=== PATIENT | male | born 1965 | race Caucasian/White ===

== ENCOUNTER 2024-11-24 11:16 | Outpatient (CLI) | payer BC, SELFPAY ==
--- NOTE | 2024-11-24 08:45 | DI.RAD_ITS ---
Exam(s) XR KNEE LT 3V AP,LAT,ALYX XR STANDING ALIGNMENT EXAM: XR STANDING ALIGNMENT and XR knee LT 3 V CLINICAL HISTORY: knee pain. TECHNIQUE: 2D digital imaging was performed. Seven images were obtained. COMPARISON: CR ORTHO KNEE LEFT 4+VIEWS from 03/28/2021 CR XR KNEE LT 3V AP,LAT,ALYX from 11/24/2024 FINDINGS: BONES: The hips are well maintained. There are stable postsurgical changes of a right total knee arthroplasty. In the left knee, there is marked narrowing of the medial femoral tibial joint. There osteophytes seen in the medial femoral tibial and patellofemoral joints. There is a small joint effusion. There is an enthesophyte at the superior patella. There is a small subchondral cyst in the medial femoral condyle. The ankles are well maintained.The right lower extremity measures 93 cm. The left lower extremity measures 94 cm. SOFT TISSUE: Vascular calcifications are present. IMPRESSION: Marked osteoarthritis of the left knee. DATA REPOSITORY: RADIATION DOSE DELIVERED:
== END 2024-11-24 11:17 | disposition home or self-care (01) ==
LOC: DIORS 11:16
PROVIDERS: PCP Physician Assistant; Visit Provider Physician Assistant
DX: M25.562 Pain in left knee (principal); M17.12 Unilateral primary osteoarthritis, left knee
CPT/HCPCS: 73562; 77073

== ENCOUNTER 2025-01-05 02:02 | Outpatient (CLI) | payer BC, SELFPAY ==
[2025-01-05 10:10] LABS: HCT 45.2 % (40.0-50.0); HGB 15.8 g/dL (13.5-17.5); MCH 31.3 pg (27.0-33.0); MCHC 35.0 % (32.0-36.0); MCV 90 fL (80-95); MPV 9.1 fL (8.0-11.0); Platelet Count 204 10^3/uL (130-400); RBC 5.05 10^6/uL (4.36-5.78); RDW 12.4 % (11.8-14.1); RDW-SD 40.1 fL; WBC 6.10 10^3/uL (4.4-10.8)
[2025-01-05 10:50] LABS: Anion Gap 8.7 mmol/L (3-11); BUN 14 mg/dL (9-23); CO2 26.3 mmol/L (20.0-31.0); Calcium 9.7 mg/dL (8.3-10.6); Chloride 104 mmol/L (98-107); Glucose 92 mg/dL (74-106); Potassium 4.5 mmol/L (3.5-5.1); Sodium 139 mmol/L (136-145)
== END 2025-01-05 02:03 | disposition home or self-care (01) ==
LOC: LBO 02:02
PROVIDERS: PCP Physician Assistant; Visit Provider Student in an Organized Health Care Education/Training Program
DX: M17.12 Unilateral primary osteoarthritis, left knee (principal); Z01.818 Encounter for other preprocedural examination
CPT/HCPCS: 36415; 80048; 85027

== ENCOUNTER 2025-01-13 06:02 | Day surgery (SDC) | payer BC, SELFPAY ==
[2025-01-13] VITALS (14 sets, daily range): BP systolic 99–129; BP diastolic 67–80; PULSE 62–75; RESP 12–17; TEMP 36.2–36.6; O2SAT 90–98; BMI 32.6
[2025-01-13] MEDS: Celecoxib 200 MG CAP 400 MG PO (06:27)
[2025-01-13] MEDS: Gabapentin 300 MG CAP PO (06:28)
[2025-01-13] MEDS: Acetaminophen 500 MG TAB 1000 MG PO (06:28)
[2025-01-13] MEDS: Lactated Ringers 1,000 ML 80 ML IV (06:45)
--- NOTE | 2025-01-13 06:58 | W.PM.DSUDISC ---
Date of service: 01/13/25 Discharge Plan Disposition Patient Disposition: Home Condition: Good Discharge Details Reason For Visit: Left knee DJD Attending Provider: Theodore Benson Primary Care Provider: Brad Mendez [place] Meds and New Rx's Prescriptions: New acetaminophen 500 mg tablet 1,000 mg PO Q8H PRN Qty: 90 0RF Rx Instructions: Take two tablets up to every 8 hours as needed for pain aspirin 81 mg tablet,delayed release (DR/EC) 81 mg PO BID 30 Days Qty: 60 0RF celecoxib [Celebrex] 200 mg capsule 200 mg PO BID PRNQty: 60 0RF Rx Instructions: Take one tablet twice daily for pain and inflammation docusate sodium [Colace] 100 mg capsule 100 mg PO BID Qty: 28 0RF dexamethasone 4 mg tablet 4 mg PO DAILY Qty: 2 0RF Rx Instructions: Take one tablet once daily for two days gabapentin 300 mg capsule 300 mg PO QHS Qty: 14 0RF Rx Instructions: Take one tablet at bedtime oxycodone 5 mg tablet 5 mg PO Q4H PRNQty: 18 0RF Rx Instructions: Take one tablet up to every 4 hours as needed for severe postoperative pain Continued atorvastatin [Lipitor] 20 mg tablet 20 mg PO DAILY lisinopril 20 mg tablet 20 mg PO DAILY zolpidem 10 mg tablet 10 mg PO QHS PRN colchicine 0.6 mg tablet 0.6 mg PO DAILY PRN allopurinol 300 mg tablet 300 mg PO DAILY Centrum Silver Men [phone] mcg tablet 1 tab PO DAILY omeprazole magnesium [Prilosec OTC] 20 mg tablet,delayed release (DR/EC) 20 mg PO DAILY Discontinued indomethacin 50 mg capsule 50 mg PO TID PRN Patient Comments: TAKE 1 CAPSULE BY MOUTH THREE TIMES DAILY NEEDED FOR MODERATE PAIN Discharge Instructions Additional Instructions: Total Knee Discharge Instructions Activity: The most important activity is to walk and to work on gentle motion (both flexion and extension). You should try to take short walks a few times a day. It is important that when resting you work on keeping the knee straight. Avoid putting a pillow behind the knee as this will encourage flexion. Work on range of motion exercises as provided by Physical Therapy. - Start outpatient physical therapy within 2 weeks. - You should wear the CARMEL hose on both legs for 2 weeks. You may remove these at night. You may also use any compression sock in place of the CARMEL hose. - Utilize [employer] to review exercises, see videos on exercises and obtain basic information pertaining to your surgery and your recovery. Dressing: Remove the Matty wrap by 2 days after your surgery and put on the CARMEL stocking given to you from the hospital. Keep the surgical dressing (underneath the MATTY wrap) in place for at least one week. After the first week it may be removed and replaced with light gauze and tape or nothing. The wound and dressing may get wet after 3 days but avoid soaking the dressing or otherwise it will need to be changed. Many people prefer covering the dressing with cling wrap (saran wrap) to minimize it from getting soaked. If it gets wet, just pat dry. If it starts to peel off then it will need to be changed. Medications: - You should take Tylenol and anti-inflammatory Celebrex as your primary pain control medications. If the Celebrex is too expensive or not covered, please call the office for another alternative (Advil/Ibuprofen or Naproxen/Aleve) - You have been prescribed a stronger pain medication Oxycodone for breakthrough pain, take as needed as prescribed. - You take a stomach acid reduction agent Omeprazole at baseline - continue with this medication to help reduce stomach acid and reflux. - You have been prescribed Gabapentin to take at night for restlessness and nerve pain. - You will be taking Aspirin 81mg twice a day for DVT prevention unless instructed otherwise. - You have also been prescribed Decadron to take to control post-operative nausea and pain. You will start this tomorrow. - If you have constipation you should take Colace (which has been prescribed) or Miralax (which is available [id number]). It takes most people 3-4 days to have a bowel movement. Follow-up: 2 weeks If you have any acute concerns or questions, please do not hesitate to contact the office at [phone]. You may contact Dr. Benson with any questions after hours through the hospital at [phone] or on his cell phone at [phone]. Stand Alone Forms: Portal Information Referrals: Theodore Benson MD [ [facility] STAFF PHYSICIAN, Orthopaedic Surgical] Equipment/Supplies: Walker Activity:: Elevate Remove Dressings/Wound Care:: Do Not Remove Shower/Bathe:: Cover Diet:: As Tolerated Discharge Orders Discharge Orders: Discharge Order (Routine); Ordered 01/13/25 Ordered By: Nicolette Ochoa
--- NOTE | 2025-01-13 07:36 | W.ANESPRE ---
General Info Date of Service Date Performed: 01/13/25 Height: 5 ft 9 in Weight: 100.3 kg Body Mass Index (BMI): 32.6 Surgical Procedure: Operation Date: 01/13/25 07:40 Proposed Procedure Side Surgeon p Knee Total Arthroplasty Left Theodore Benson MD Meds Allergies and Home Medications Allergies Allergy/AdvReac Type Severity Reaction Status Date / Time adhesive tape Allergy Mild rash Verified 01/13/25 06:23 benzalkonium chloride (From Allergy Mild rash Verified 01/13/25 06:23 Jus-All) Home Medication ?Medication ?Instructions ?Recorded atorvastatin 20 mg tablet (Lipitor) 20 mg PO DAILY 08/21/24 lisinopril 20 mg tablet 20 mg PO DAILY 08/21/24 zolpidem 10 mg tablet 10 mg PO QHS PRN 08/21/24 allopurinol 300 mg tablet 300 mg PO DAILY 01/05/25 colchicine 0.6 mg tablet 0.6 mg PO DAILY PRN 01/05/25 [id number] 300 mcg-K 60 1 tab PO DAILY 01/09/25 mcg-lycop 600 mcg-lutein 300 mcg tablet (Centrum Silver Men) acetaminophen 500 mg tablet 1,000 mg (2 x 500 mg) PO Q8H PRN 01/13/25 pain #90 tabs aspirin 81 mg tablet,delayed 81 mg PO BID 30 days #60 tabs 01/13/25 release celecoxib 200 mg capsule (Celebrex) 200 mg PO BID PRN #60 caps 01/13/25 dexamethasone 4 mg tablet 4 mg PO DAILY #2 tabs 01/13/25 docusate sodium 100 mg capsule 100 mg PO BID #28 caps 01/13/25 (Colace) gabapentin 300 mg capsule 300 mg PO QHS #14 caps 01/13/25 omeprazole magnesium 20 mg 20 mg PO DAILY 01/13/25 tablet,delayed release (Prilosec OTC) oxycodone 5 mg tablet 5 mg PO Q4H PRN #18 tabs 01/13/25 Current Visit Medications: Current Medications Generic Name Dose Route Start Last Admin Trade Name Freq PRN Reason Stop Dose Admin Acetaminophen 1,000 mg 01/13/25 06:00 01/13/25 06:28 Acetaminophen 500 Mg Tab PO 01/13/25 23:59 1,000 mg PREOP ALISON Administration Celecoxib 400 mg 01/13/25 06:00 01/13/25 06:27 Celecoxib 200 Mg Cap PO 01/13/25 23:59 400 mg PREOP ALISON Administration Gabapentin 300 mg 01/13/25 06:00 01/13/25 06:28 Gabapentin 300 Mg Cap PO 01/13/25 16:00 300 mg TODAY ALISON Administration Hydromorphone HCl 0.5 mg 01/13/25 06:57 Hydromorphone 2 Mg/Ml Syr IVP 02/12/25 06:56 Q2H PRN PRN Ringer's Solution 1,000 mls @ 80 mls/hr 01/13/25 06:00 IV 01/13/25 23:59 INFUSION ALISON Cefazolin Sodium/Dextrose 2 gm in 50 mls @ 100 mls/hr 01/13/25 06:00 Ancef Duplex IVPB 01/13/25 23:59 PREOP ALISON Tranexamic Acid/Sodium Chloride 1,000 mg in 100 mls @ 600 mls/hr 01/13/25 06:00 IVPB 01/13/25 23:59 PREOP ALISON Cefazolin Sodium/Dextrose 1 gm in 50 mls @ 100 mls/hr 01/13/25 08:00 Ancef Duplex IVPB 01/14/25 00:29 Q8H ALISON Oxycodone HCl 0 mg 01/13/25 06:57 Oxycodone 5 Mg Tab PO 02/12/25 06:56 Q3H PRN PRN Pain Sodium Chloride 0 ml 01/13/25 06:00 Normal Saline Flush 10 Ml Syr IV 01/13/25 23:59 PRN PRN Sodium Chloride 0 ml 01/13/25 06:00 Normal Saline 10 Ml Vial IJ 01/13/25 23:59 DIRECTED PRN Sterile Water 0 ml 01/13/25 06:00 Water,Injection,Sterile 10 Ml Vial IJ 01/13/25 23:59 DIRECTED PRN Tranexamic Acid 1,300 mg 01/13/25 06:57 Tranexamic Acid 650 Mg Tab PO 02/12/25 06:56 ONCE PRN postoperative PFSH Active Problems Active Problems: Problem Status Onset Code History of total left knee replacement Acute 01/06/25 Z96.652 Obesity Chronic E66.9 Hypertensive disorder Chronic I10 Hyperlipidemia Acute E78.5 Gout Chronic M10.9 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 Medical History Medical History Carpal tunnel syndrome, right Surgical History Surgical History History of total knee arthroplasty mircro fx procedure in 2008, R knee R TKA 12/28/20 Tobacco Smoking/Tobacco Use Status: Never Alcohol Alcohol Intake: current Alcohol intake frequency: a few times a month Substance Use Substance use type: does not use and marijuana Vital Signs and Lab Results Vital Signs Most Recent Vital Signs in EMR: Most Recent Vital Signs Temp Pulse Resp BP Pulse Ox 36.2 C L 65 17 123/79 98 01/13/25 06:19 01/13/25 06:19 01/13/25 06:19 01/13/25 06:19 01/13/25 06:19 Lab Results Complete Blood Count: WBC, (4.4-10.8) 6.10 10^3/uL 01/05/25, 09:53 RBC, (4.36-5.78) 5.05 10^6/uL 01/05/25, 09:53 Hgb, (13.5-17.5) 15.8 g/dL 01/05/25, 09:53 Hct, (40.0-50.0) 45.2 % 01/05/25, 09:53 Plt Count, (130-400) 204 10^3/uL 01/05/25, 09:53 Complete Metabolic Panel: Sodium, (136-145) 139 mmol/L 01/05/25, 09:53 Potassium, (3.5-5.1) 4.5 mmol/L 01/05/25, 09:53 Chloride, (98-107) 104 mmol/L 01/05/25, 09:53 Carbon Dioxide, (20.0-31.0) 26.3 mmol/L 01/05/25, 09:53 BUN, (9-23) 14 mg/dL 01/05/25, 09:53 Creatinine, (0.73-1.18) 0.8 mg/dL 01/05/25, 09:53 Est GFR (CKD-EPI 2020), (mL/min/1.73m2) 100.44 01/05/25, 09:53 Calcium, (8.3-10.6) 9.7 mg/dL 01/05/25, 09:53 Glucose, (74-106) 92 mg/dL 01/05/25, 09:53 Anesthesia Assessment and Plan Anesthesia History Personal History: No History of Anesthesia Complications Family History: No Family History of Anesthesia Complications Exercise Tolerance Exercise Tolerance: Metabolic Equivalents>4 Pertinent Negatives Pertinent Negatives: No Symptoms of GERD, No Major Cardiovascular Symptoms or Complaints, No Major Pulmonary Symptoms or Complaints and No History of CVA/TIA Cardiac & Pulmonary Exam Cardiac Exam: Normal S1/S2 Heart Sounds Pulmonary Exam: Clear Bilateral Breath Sounds Implantable Cardiac Device Does patient have a Pacemaker or an ICD?: No Airway Exam Known Difficult Airway: No Mallampati Class: 2 Mouth Opening: Normal (> 3cm) Thyromental Distance: Greater than 3 cm Neck Range of Motion: Full ROM Neck Circumference: Normal Teeth Condition: Normal Dentition ASA Classification ASA Score: ASA 2 Emergency Case?: No NPO Status NPO Status: NPO Clears >2 hours, Solids >8 hours Anesthesia Plan Resuscitation Status: Full Code Anesthesia Technique: Spinal Anesthesia Airway Planned: Natural Airway Pain Management: Surgeon and patient request nerve block Monitors Used: Standard Monitors
--- NOTE | 2025-01-13 07:37 | W.ANESNERVE ---
Nerve Block Single Injection Procedure Date and Time Date Performed: 01/13/25 Procedure Start: 07:22 Location Where Procedure Performed Procedure Location: Day Surgery Unit Reason Performed: Postoperative Analgesia Requesting Provider: Theodore Benson Timeout Performed Timeout Performed: Yes Monitoring Used ECG, Blood Pressure, SpO2 and See EMR for corresponding vital signs Sterility Sterility: Hand Hygiene, Surgical Cap, Surgical Mask, Sterile Gloves and Chlorhexidine Sedation Given During Procedure Sedation Given (Indicate Dose Given): Versed IV Dose:: 2 mg Patient Mental Status Patient Mental Status: Sedate with meaningful communication Nerve Block 1st Nerve Block: Laterality: Left Block Type: Adductor Canal Ultrasound Image Saved?: Yes Needle / Catheter Used: 100mm SonoPlex II Local Anesthetic Bolus (Indicate Dose Given): Injected in 3-5ml increments after negative blood aspiration, Bupivacaine 0.25% Dose:: 10 and Exparel Dose:: 10 ml Additives (Indicate Dose Given): None Ultrasound: Sterile probe cover and gel used Nerve Stimulator: Supplement to Ultrasound use, Expected parasthesia or motor response elicited (slight motor to medial quadriceps. repositioned and disappeared. ) and No twitch or parasthesia noted < 0.5 mA Paresthesia: None Procedure Tolerated: No Complications and Patient tolerated well Procedure Outcome: Successful Performed By: Tomi Rhodes 2nd Nerve Block: Laterality: Left Block Type: Other (AFCN) Ultrasound Image Saved?: Yes Needle / Catheter Used: 100mm SonoPlex II Local Anesthetic Bolus (Indicate Dose Given): Injected in 3-5ml increments after negative blood aspiration and Bupivacaine 0.25% Dose:: 10 ml Additives (Indicate Dose Given): None Ultrasound: Sterile probe cover and gel used Nerve Stimulator: Supplement to Ultrasound use, Expected parasthesia or motor response elicited and No twitch or parasthesia noted < 0.5 mA Paresthesia: None Procedure Tolerated: No Complications and Patient tolerated well Procedure Outcome: Successful Performed By: Tomi Rhodes
[2025-01-13] MEDS: ceFAZolin 2 GM/50 ML BAG IVPB (07:58)
[2025-01-13] MEDS: TRANEXAMIC ACID/SOD. CHL. 1,000 MG/100 ML BAG 600 MG IVPB (08:04)
[2025-01-13] MEDS: Ketorolac 30 MG/ML VIAL (08:12)
[2025-01-13] MEDS: ROPIvacaine 0.2% 200 MG/100 ML BAG (08:12)
[2025-01-13] MEDS: EPINEPHrine 1 MG/ML AMP pres-free (08:12)
--- NOTE | 2025-01-13 09:07 | W.PM.OP ---
Operative Note Operative Note PRE-OP DIAGNOSIS: Left Knee Osteoarthritis POST-OP DIAGNOSIS: same PROCEDURE: Left Total Knee Replacement SURGEON: Theodore Benson HEAD OF TRAINING AND DEVELOPMENT: Nicolette Ochoa ANESTHESIA TYPE: General LMA/ETT Refer to Anesthesia Record ESTIMATED BLOOD LOSS: 150 PATHOLOGY: none sent TOURNIQUET TIME: 0 COMPLICATIONS: None Patient was transported to: PACU Patient's condition: stable Implants: 1. Depuy Attune Cementless Cruciate Retaining Femoral Component, Size 6 2. Depuy Attune Cementless Fixed Bearing Tibial Component, Size 7 3. Depuy Attune 6x10mm CR/FB Poly Indications: I have seen Leonard in clinic for symptoms of knee arthritis, confirmed with radiographic findings. He has exhausted nonoperative methods and was having significant limitations in daily function and desired better function and less pain. I discussed the technical details of a knee replacement. I explained the risks of the procedure to include, but not limited to, bleeding, infection, pain, stiffness, fracture, damage to nerves and vessels, damage to muscles and tendons, loosening, need for repeat procedure, blood clot and cardiopulmonary demise. Despite these risks, Leonard elected to proceed. Findings: There was significant signs of arthritis throughout the medial compartment of the knee primarily with areas of exposed bone. Procedure Description: Leonard was greeted in the preoperative holding area where the correct side was identified and marked. The consent was reviewed with the patient and signed. The history and physical was updated. All questions were answered. Preoperative medications were administered: Acetaminophen 1000mg, Celebrex 400mg, and Gabapentin 300mg. An adductor canal block was then administered by the anesthesia team in the DSU. He was taken back to the operating room. A general anesthestic was then administered. The patient was placed into the supine position on the operating room table. Posts were placed for positioning during the procedure. All bony prominences were well padded. Prophylactic antibiotics in the form of Cefazolin were administered. 1g of Tranxemic Acid was given intravenously within 30 minutes of incision. The left leg was then prepped with Chloraprep and draped in a standard fashion with impervious stockinette. A second prep with Chloraprep was performed prior to application of Iodine impregnated skin protection. A timeout to confirm correct identity, side and site, procedure, allergies, anesthesia, and medical concerns was performed. With the knee in some flexion, a midline incision was made overlying the knee. Full thickness skin flaps were raised once the extensor mechanism was encountered. These were raised medially and laterally. Any bleeding was controlled with electrocautery. Once the extensor mechanism was fully exposed, a medial parapatellar arthrotomy was performed in a flexed position. All bleeding from the arthrotomy and the geniculate arteries was coagulated. A medial subperiosteal peel was performed with electrocautery to the midcoronal plane. Due to the significant varus deformity the entire medial tibial plateau was exposed. The fat pad was removed while keeping the patellar tendon protected. The anterior distal femur synovium was removed for later visualization. The ACL and PCL were resected and the anterior horn of the lateral meniscus was transected. The knee was then flexed with the patella everted. Large osteophytes from the tibia were removed. Large osteophytes from the femur were removed. Using a step drill, and based on preoperative templating, the femoral canal was entered. This was done with a step drill without any difficulty. The intramedullary distal femoral cut guide was inserted, set to a 5 degree valgus cut and 9mm cut thickness. The distal femoral cut guide was then held in position and pinned. With the soft tissues protected, the distal cut was performed. This was passed over a few times to ensure a planar cut. I then turned attention to the tibia. The extramedullary guide was placed onto the leg. The distal aspect was slid medial to adjust for position of center of ankle and stay in line with shaft of the tibia. Approximately 5 degrees of posterior slope was kept in the proximal cutting guide. The center of the guide was aligned with the PCL. The stylus was used to assess cut thickness. The medial side, most involved side, was set for a 4mm cut. This was then held in position and pinned into place with 2 additional pins and a cross pin for stability. The medial and lateral collateral ligaments were protected and the cut was performed. With this completed, it was assessed and noted to be of appropriate dimensions. The guide was removed. A spacer block was inserted and the knee was brought into extension. The 8mm spacer block provided full extension, without hyperextension and with stability of both the medial and lateral collateral ligaments was assessed. The pins from the femur and the tibia were then removed. The distal femur was then sized. The anterior stylus was placed onto the lateral ridge of the anterior femur. This indicated a size 6 femur. The external rotation of the guide was adjusted to 3 degrees to match the epicondylar axis, perpendicular to Verona?s line. The 4-in-1 cutting guide was the placed. The posterior medial femur cut was evaluated and appeared of good thickness. The spacer block was inserted underneath the cutting guide and stability was confirmed in 90 degrees of flexion. An keanu wing was used to confirm appropriate position of the anterior cut to avoid notching. This cutting guide was ensured to be flush on the cut surface and then pinned into place with headed pins. While protecting the soft tissues, quad tendon, and collateral ligaments, the anterior and posterior cuts were performed with a saw. The central two pins were removed and the posterior and anterior chamfers were cut next. The notch-cutting guide was placed. This was pinned to lateralize the femoral component as much as possible while keeping it flush on the cut surface. This was then pinned into position. A reciprocating saw was used to make the notch cut. A rasp smoothed the cut surfaces. The medial and lateral menisci were removed. A trial femoral component was then inserted, impacted down to the cut surfaces, and the lug holes were drilled. A provisional trial tibial component was placed and the knee was brought through range of motion. The polyethylene was trialed until there was good flexion and extension with excellent stability to the medial and lateral collaterals. The patella was tracking without thumbs. A size 10mm polyethylene component provided the best range of motion and stability with less than 2mm gapping with medial and lateral stress and full extension without significant hyperextension. The tibial cut surface was fully exposed. The tibia was then sized as a 7. The tibia had been previously marked during trialing to correspond to the center of the tibial component to help with rotation. The trial was aligned to this debbie, approximately rotated to the medial 1/3rd of the tibial tubercle. The trial was pinned into place. The tibia was prepared with a reamer and a keel punch and lug holes. The trial components were removed. The final components were opened on the back table. The periosteal and capsular tissues, especially posteriorly, around the knee were then systematically injected with a periarticular cocktail consisting of 200mg of Ropivacaine, 0.5mg of Epinephrine, and 30mg of Ketorolac, diluted to 100cc. On the back table, with the implants opened. The cementless knee components were placed. Starting with the tibial component, the tibia was subluxed anteriorly and the lug holes of the component were lined up. The tibia was then impacted with an impactor and mallet until the tibial component was in contact with the tibia. Then, the femoral component was inserted. The lug holes were aligned and the component was impacted into position. The final polyethylene component was inserted. The knee was irrigated with Surgiphor Betadine solution. This was allowed to sit in the knee for 3 minutes and then it was irrigated out with saline. The patella was tracking with a no-thumbs technique. A complete synovectomy was performed around the periphery of the patella. The capsule was then reapproximated with a No. 1 Vicryl at multiple locations. The capsule was finally closed with a No. 2 Stratafix, barbed suture. Deep tissues were then reapproximated with 0 Vicryl and 2-0 Vicryl. The skin was closed with a running 3-0 Monocryl in a subcuticular fashion. This was reinforced with skin glue. A Mepilex silver dressing was applied along with a [id number] DARRON wrap. A CryoCuff was applied. Leonard was transferred to the hospital bed without difficulty an suffering no apparent complication. Leonard has a good prognosis. Physical therapy will start today and without restrictions, weight-bearing as tolerated. Aspirin 81mg BID will be used for DVT prophylaxis. Date of Procedure: 01/13/25
[2025-01-13] MEDS: Tranexamic Acid 650 MG TAB 1300 MG PO (09:54)
[2025-01-13] MEDS: oxyCODONE 5 MG TAB PO (09:54)
--- NOTE | 2025-01-13 09:55 | W.ANESPOSTOP ---
Postoperative Evaluation Date, Time and Location Date Performed: 01/13/25 Time Performed: 10:05 Patient Location: Day Surgery Unit Vital Signs Most Recent Imported Vital Signs: Most Recent Vital Signs Temp Pulse Resp BP Pulse Ox 36.6 C 71 15 106/80 93 01/13/25 09:38 01/13/25 09:36 01/13/25 09:36 01/13/25 09:36 01/13/25 09:36 Pain Score Most Recent Pain Score: Most Recent Pain Score Pain Level 0 01/13/25 09:38 Assessment Mental Status: Awake (Alert & Oriented to Patient Baseline) Airway and Respiratory Function: Patent airway with normal (patient baseline) respiratory exam Cardiovascular Function: Hemodynamically Stable Hydration Status: Adequately Hydrated Nausea & Vomiting: No Nausea or Vomiting Pain: Pain is tolerable per patient (Reports achy but very similar to postoperative discomfort. ) Peripheral Nerve Block: Regional nerve block not resolved at time of post operative discharge
--- NOTE | 2025-01-13 11:21 | IN_ITS ---
PT Notes Visit Reasons: Left knee DJD Physical Therapy Day Surgery Initial Evaluation Date: 01/13/2025 Referring Doctor: Dr. Benson/Nicolette Ochoa NP PT Orders: PT CONSULT: Status post Ortho surgery Precautions: WBAT left LE Patient Profile/Admitting Diagnosis: patient is a 59-year-old male who presents status post elective Left TKA by Dr. Benson on 01/13/2025 under general anesthesia with adductor block. Postop uncomplicated PMHX:Osteoarthritis of left knee (Acute) Obesity (Chronic) Hypertensive disorder (Chronic) Hyperlipidemia (Acute) Gout (Chronic) Chondromalacia of right patella (Acute) Medical History (Updated 11/24/24 @ 09:03 by JOSELITO Conner) Carpal tunnel syndrome, right Surgical History (Updated 08/21/24 @ 15:26 by Anne Orozco RN) History of total knee arthroplasty 02/20/08 R TKA 12/28/20 Social History/Home Situation: Patient resides with his in 1 level home with 2 steps to enter without a rail through the garage. Patient independent ambulation, ADLs, home/yard management, drives. Patient employed full-time as lifeguard Equipment Owned/DME: FWW, axillary crutches Subjective: Patient reports he feels well and is looking forward to going home Objective: [] General Observation: Male presented semireclined on stretcher with Cryo/Cuff to left knee present Mental Status: Alert and oriented x 4, cooperative, able to follow instructions, agreeable to participate Pain: Left knee 2/10 ROM: [] Right Upper Extremity: WNL Left Upper Extremity: WNL Right Lower Extremity: WNL Left Lower Extremity: Hip and ankle WNL knee 0-95 degrees Strength: [] Right Upper Extremity: 5/5 Left Upper Extremity: 5/5 Right Lower Extremity: 5/5 Left Lower Extremity: Patient demonstrates ability to perform straight leg raise without lag shortening range of motion, strong quad set.Hip flexion: 3 -/5; hip abduction: 3/5; hip extension: 3/5; knee extension: 3/5; knee flexion: 3 -/5 ankle DF: 3/5 ; ankle PF: 3/5 Sensation: Intact Bed Mobility/Transfers: [] Supine to sit supervision Sit to stand SBA with cue to push up from surface Stand to sit SBA Bed to chair with FWW SBA Gait: Ambulated with FWW 100 feet level surfaces including turns SBA demonstrating reciprocal pattern slightly reduced knee flexion on left. Stairs: 3 4 steps? and 2 6 steps with 1 rail and 1 crutch SBA with continuous cues for sequencing step to pattern Balance: [] Static Sitting: Normal Dynamic Sitting: good Static Standing: Good Dynamic Standing: Good- with upper extremity support Special Tests: [] Mobility Limitations Standardized Measure [] [facility] AM-PAC 6 clicks Basic Mobility Inpatient Short Form: [] Raw Score: 23 CMS Score: 11.20% Informed Consent/Education: Patient instructed in purpose of PT consult. Treatment: 34781 packet containing TKA exercise protocol has been given to patient. Education and training on initial set of 10 reps of exercises that can be done at home have been completed with patient. [id number] functional mobility with crutches transfers various surfaces including toilet bed chair wheelchair standby assist with cues for hand placement to push up, ambulation with crutches 50 feet standby assist, 2 stairs with crutches SBA Assessment: Patient is a 59-year-old male who presents with clinical signs and symptoms consistent with current/admitting diagnoses that have resulted to mobility limitations, gait instability, generalized weakness, and impairment of motor control as demonstrated by the following impairment level findings: 1. Decreased strength to left knee major muscle groups 2. Impaired standing balance 3. Limitation of joint range of motion in left knee 4. Pain left knee 5. Impaired functional activity tolerance Impairments are contributing to the following functional limitations: 1. Inability to safely ambulate without assistive device 2. Increase completion time for mobility ADL performance 3. Increased fall risk 4. Difficulty performing stairs independently Patient is assessed as a low complexity based on the following: History: 59-year-old male with impairment level findings, functional limitations, and past medical history as indicated above Examination: Demonstrable impairment in strength, balance, and mobility level with underlying impairments and functional limitations as documented above Presentation: Stable/evolving Decision Making: Low Goals: N/A. PT evaluation and 1-2 treatment sessions only for functional mobility training using recommended AD and for HEP instruction. Plan of Care/Treatment Plan: N/A. PT evaluation and 1-2 treatment session only for functional mobility training using recommended AD and for HEP instruction. DISCHARGE RECOMMENDATIONS: Home with HEP and outpatient PT as scheduled TREATMENT CODE/TIME: 13627, 65059, 47412/ [id number] Thank you for the opportunity to participate in the care of this patient. Aury Cartwright, PT [facility]
== END 2025-01-13 12:38 | disposition home or self-care (01) ==
PROVIDERS: PCP Physician Assistant; Visit Provider Student in an Organized Health Care Education/Training Program
PROC: (CPT 27447; principal; 2025-01-13 07:30)
DX: M17.12 Unilateral primary osteoarthritis, left knee (principal)
CPT/HCPCS: 27447; 64447; 64450; 97110; 97161; 97530; C1776; J0166; J0665; J0666; J0690; J1100; J1171; J1885; J2003; J2250; J2401; J2405; J2704; J2795; J3475

== ENCOUNTER 2025-01-26 14:16 | Outpatient (CLI) | payer BC, SELFPAY ==
--- NOTE | 2025-01-26 09:15 | DI.RAD_ITS ---
Exam(s) XR KNEE LT 1V EXAM: XR KNEE LT 1V CLINICAL HISTORY: 1ST POST OP S/P L TKA. TECHNIQUE: 2D digital imaging was performed. COMPARISON: CR XR KNEE LT 3V AP,LAT,ALYX from 11/24/2024 FINDINGS: Single lateral view of left hip Position alignment of the components of the recently placed prosthesis are satisfactory. No fracture or loosening evident IMPRESSION: Satisfactory appearance DATA REPOSITORY: RADIATION DOSE DELIVERED:
--- NOTE | 2025-01-26 09:15 | DI.RAD_ITS ---
Exam(s) XR STANDING ALIGNMENT EXAM: XR STANDING ALIGNMENT CLINICAL HISTORY: 1ST POST OP S/P L TKA. TECHNIQUE: 2D digital imaging was performed. COMPARISON: CR XR STANDING ALIGNMENT from 11/24/2024 FINDINGS: 3 views There has been interval placement of a left knee prosthesis. There are now bilateral knee prostheses which both appear unremarkable. There are symmetrical moderate degenerative changes in the hip joints. No obvious degenerative changes in the ankle tibiotalar joints. Bone density normal. No osseous lesions. His cure lytic joints appear unremarkable. No pelvic tilt evident IMPRESSION: Satisfactory appearance of the bilateral hip prostheses. Symmetrical moderate degenerative changes in the hips. DATA REPOSITORY: RADIATION DOSE DELIVERED:
== END 2025-01-26 14:17 | disposition home or self-care (01) ==
LOC: DIORS 14:16
PROVIDERS: PCP Physician Assistant; Visit Provider Student in an Organized Health Care Education/Training Program
DX: Z96.652 Presence of left artificial knee joint (principal); Z47.1 Aftercare following joint replacement surgery
CPT/HCPCS: 73560; 77073